=== PATIENT | female | born 1950 | race Caucasian/White ===

== ENCOUNTER → 2016-07-16 | Outpatient (CLI) | payer MEDICARE, OTHER ==
[2016-07-16 12:09] LABS: BUN/CREATININE RATIO 32 (0-10)
== END ==
LOC: LAB 09:53
PROVIDERS: Emergency Medicine
DX: D64.9 Anemia, unspecified (principal); E44.0 Moderate protein-calorie malnutrition; E55.9 Vitamin D deficiency, unspecified; E78.2 Mixed hyperlipidemia; I10 Essential (primary) hypertension; I95.89 Other hypotension; J20.9 Acute bronchitis, unspecified; J43.8 Other emphysema; J44.1 Chronic obstructive pulmonary disease with (acute) exacerbation; K25.7 Chronic gastric ulcer without hemorrhage or perforation; M13.811 Other specified arthritis, right shoulder; M15.8 Other polyosteoarthritis; Q61.8 Other cystic kidney diseases; R42 Dizziness and giddiness; R53.83 Other fatigue; R63.4 Abnormal weight loss; R91.8 Other nonspecific abnormal finding of lung field
CPT/HCPCS: 36415; 80053; 82941; 85018

== ENCOUNTER → 2016-07-22 | Outpatient (CLI) | payer MEDICARE, OTHER ==
[~2016-07-22] VITALS: Ht 167.6 cm; Wt 46.7 kg
== END ==
LOC: CT 07:43
DX: Q61.8 Other cystic kidney diseases (principal); E86.0 Dehydration; N28.9 Disorder of kidney and ureter, unspecified; J43.9 Emphysema, unspecified
CPT/HCPCS: 74170; 96360; 96361; J7030; J7050; Q9962

== ENCOUNTER → 2017-01-06 | Outpatient (CLI) | payer MEDICARE, OTHER ==
[2017-01-06 14:29] LABS: BUN/CREATININE RATIO 33 (0-10)
[2017-01-06 14:46] LABS: HEMOGLOBIN 14.2 gm/dl (12.3-15.3); RED BLOOD COUNT 4.62 M/UL (4.00-5.10); WHITE BLOOD COUNT 7.2 K/UL (4.5-11.0)
== END ==
LOC: LAB 13:13
PROVIDERS: Emergency Medicine
DX: M51.36 Other intervertebral disc degeneration, lumbar region (principal); I10 Essential (primary) hypertension; K21.9 Gastro-esophageal reflux disease without esophagitis; E44.0 Moderate protein-calorie malnutrition; E55.9 Vitamin D deficiency, unspecified; E78.2 Mixed hyperlipidemia; G43.009 Migraine without aura, not intractable, without status migrainosus; I95.89 Other hypotension; J20.9 Acute bronchitis, unspecified; J43.8 Other emphysema; J44.1 Chronic obstructive pulmonary disease with (acute) exacerbation; K25.7 Chronic gastric ulcer without hemorrhage or perforation; M13.811 Other specified arthritis, right shoulder; M15.8 Other polyosteoarthritis; M54.2 Cervicalgia; N28.1 Cyst of kidney, acquired; Q61.8 Other cystic kidney diseases; R42 Dizziness and giddiness; R53.83 Other fatigue; R63.4 Abnormal weight loss; R91.8 Other nonspecific abnormal finding of lung field
CPT/HCPCS: 36415; 80048; 85027; 85610; 85730